=== PATIENT | male | born 1980 | race African-American/Black ===

== ENCOUNTER 2016-03-28 15:39 | Emergency (ER) | payer OTHER ==
--- NOTE | 2016-03-28 17:37 | ED NURSING NOTES ---
Clinical Report - Nurses [facility] [place] [address] 03/28/2016 15:40 Patient: HIEN BRUNO JR TRIAGE Triage time 15:48 Mar 28 2016. Acuity: LEVEL 3. Chief Complaint: ABDOMINAL PAIN, NAUSEA and DIARRHEA. Alert. No acute distress. --15:55 Madeline Ballesteros R.N. 15:48 03/28/16. BP: 99/63. HR: 80. RR: 18. O2 saturation: 98%. Temp: 98.2 F. --15:55 Madeline Ballesteros R.N. Weight: 58.9 kg estimated. Height/Length: 67 inches Estimated. BMI: 20.4. --15:47 Madeline Ballesteros R.N. Medications None. --15:48 Madeline Ballesteros R.N. Medication/allergy information source: the patient. --15:55 Madeline Ballesteros R.N. Allergies No Known Drug Allergy. --15:51 Madeline Ballesteros R.N. History Arrived by private vehicle. Historian: patient. Accompanied by friend. Primary physician ("can't remember"). ( 4 days of diarrhea - vomiting). The patient has had vomiting and diarrhea. Last oral intake by patient was lunch. Treatment MOUNTAIN OR GLACIER GUIDE: None. SURGERY HX: No history of previous surgery. SOCIAL HX: Light tobacco smoker (cigarette)- less than 1/2 a pack per day. History of drug use: marijuana. No alcohol use. No recent travel. No infectious disease exposure. No known contact with a sick individual. FALL RISK ASSESSMENT: Fall risk assessment completed. No fall risk identified. NUTRITIONAL RISK ASSESSMENT: The nutritional risk assessment revealed no deficiencies. FUNCTIONAL ASSESSMENT: Functional assessment: no impairments noted. LEARNING NEEDS ASSESSMENT: The learning needs assessment revealed no barriers. SKIN INTEGRITY ASSESSMENT: Skin integrity risk assessment completed. No skin integrity risk identified. --15:55 Madeline Ballesteros R.N. PROBLEMS: PTSD. Schizoaffective Disorder. --15:51 Madeline Ballesteros R.N. Interventions ID band on patient. To room. --15:55 Madeline Ballesteros R.N. PHYSICAL ASSESSMENT Ambulatory to room. GENERAL / NEURO / PSYCH: Oriented X 4. Appears in no acute distress. RESPIRATORY: Respirations not labored. CVS: Capillary refill less than 2 seconds. GI / : Abdomen soft. SKIN: Skin is warm and dry. --16:28 Madeline Ballesteros R.N. NURSING PROGRESS NOTES 16:16 03/28/2016 Site #1 started via IV in the right antecubital space with an 20g angiocath; one attempt. Blood drawn: rainbow set. Labeled in the presence of the patient and sent to the lab. Saline lock flushed with 10 mL saline. --16:16 John Linn R.N. 16:16 03/28/2016 Started bag #1 1000 mL IV Fluids IV NS (Saline); bolus of 1000 mL wide open then at 1000 mL/hr via site #1. Allergies verified and confirmed 5 rights. IV patency established. IV site checked: no pain, redness, or swelling. IV flushed thoroughly pre- and post-medication administration. --16:17 John Linn R.N. ( Pt will try to have a BM while here, plan for collection.). --16:28 Madeline Ballesteros R.N. 17:13 03/28/2016 IV Fluids IV NS Discontinued: bag #1 infused. Total amount infused: 1000 mL. IV patency established. IV site checked: no pain, redness, or swelling. IV flushed thoroughly. --17:13 aMdeline Ballesteros R.N. ( no stool as of this time.). --17:13 Madeline Ballesteros R.N. ( Patient provided with stool sample collection kit. Patient given instructions for use at home.). --17:45 John Linn R.N. DISPOSITION / DISCHARGE 17:52 03/28/2016 Site #1 removed upon discharge. Pressure dressing applied. --17:52 Letty Thakur R.N. Departure time: 17:53. Condition at departure: unchanged and stable. Discharge instructions provided and reviewed with the patient. Reviewed medication(s) side effects information. Prescription(s) given to the patient. Patient verbalized understanding. Written instructions provided in [place]. The patient was discharged by the physician assistant statistician. He was discharged home and accompanied by procedures tech. He left the Emergency Department ambulatory and via private vehicle. Welding Process Engineer driving. --17:53 Letty Thakur R.N. 17:52 03/28/16. BP: 97/64. HR: 65. RR: 18. O2 saturation: 98%. --17:53 Letty Thakru R.N. Locked/Released at 04/01/2016 10:42 by Kassidy Montiel R.N.
--- NOTE | 2016-03-28 17:37 | ED CLINICAL REPORT ---
Clinical Report - Physicians/Mid Levels [facility] [address] [place] [address] 03/28/2016 15:40 Patient: HIEN BRUNO JR Time Seen: 15:46 Mar 28 2016. Arrived- By private vehicle. Historian- patient. HISTORY OF PRESENT ILLNESS Chief Complaint: VOMITING and DIARRHEA. This started 4 days and is still present. No recent travel. He has had nausea, vomiting and diarrhea. No flank pain. Has recently been on antibiotics but not recently been camping. The illness is described as moderate. (Patient reports nausea vomiting and diarrhea over the last 4 days, with some abdominal pain, 2 Zofran prior to arrival. No recent travel. He was recently ill with a sinus infection, finished antibiotic course for weeks previously. No hematochezia.). Similar symptoms previously: None. Recent medical care: Not recently seen/assessed. REVIEW OF SYSTEMS No fever, difficulty with urination, dark urine, cough or chest pain. All systems otherwise negative, except as recorded above. SOCIAL HISTORY Smoker- current status unknown. History of drug use: marijuana. No alcohol use. ADDITIONAL NOTES The nursing notes have been reviewed. PHYSICAL EXAM Vital Signs: 03/28/2016 15:48 BP: 99/63. HR: 80. RR: 18. O2 saturation: 98%. Temp: 98.2 F. Appearance: Alert. Eyes: Eyes normal inspection. ENT: Ears normal. Nose normal. Neck: Normal inspection. No carotid bruit. CVS: Normal heart rate and rhythm. Heart sounds normal. Respiratory: No respiratory distress. Breath sounds normal. No accessory muscle use. Abdomen: Soft and nontender. Bowel sounds normal. No abdominal tenderness. Back: Normal inspection. No CVA tenderness. Neuro: Oriented X 3. LABS, X-RAYS, AND EKG Laboratory Tests: CBC w Diff: (ELIZA: 03/28/2016 16:05) ( MsgRcvd 03/28/2016 17:06) Final results Test Result Flag Units (Reference) WHITE BLOOD COUNT 3.8 L K/uL (4.5-11.5) RED BLOOD COUNT 5.06 M/uL (4.50-5.90) HEMOGLOBIN 13.9 gm/dL (13.5-17.5) HEMATOCRIT 43.3 % (41.0-53.0) MEAN CELL VOLUME 86 fL (80-100) MEAN CORPUSCULAR HGB 28 pg (26-34) MEAN CORPUSCULAR HGB CONC 32 g/dL (31-37) RED CELL DISTRIBUTION WIDTH 12.9 % (11.6-14.8) PLATELET COUNT 196 K/uL (150-400) NEUTROPHIL % 40.6 L % (50-75) LYMPH % 41.1 H % (25-40) MONO % 13.1 % (3-14) EOSINOPHIL % 4.9 H % (0-4) BASOPHIL % 0.3 % (0-2) CMP: (ELIZA: 03/28/2016 16:05) ( MsgRcvd 03/28/2016 17:22) Final results Test Result Flag Units (Reference) GLUCOSE 90 mg/dL (70-110) BUN 11 mg/dL (7-18) CREATININE 1.4 H mg/dL (0.6-1.3) Estimated GFR >60 mL/min Estimated GFR- >60 mL/min Note: Persistent reduction over 3 months in eGFR<60 mL/min/1.73 m2 defines CKD. Patients with eGFR values>=60 mL/min/1.73 m2 may also have CKD if evidence ofpersistent proteinuria. Additional information may be foundat www.kidney.org. SODIUM 143 mmol/L (136-145) POTASSIUM 3.6 mmol/L (3.5-5.1) CHLORIDE 104 mmol/L (98-107) CARBON DIOXIDE 32 mmol/L (21-32) CALCIUM 9.1 mg/dL (8.5-10.1) TOTAL PROTEIN 7.8 g/dL (6.4-8.2) ALBUMIN 3.9 g/dL (3.3-5.0) BILIRUBIN, TOTAL 0.6 mg/dL (0.0-1.0) ALKALINE PHOSPHATASE 51 U/L (46-116) AST (SGOT) 10 L U/L (15-37) ALT (SGPT) 20 U/L (12-78) LIPASE 72 L U/L (73-393) . PROGRESS AND PROCEDURES Course of Care: During the time in the ED, the following DDX were considered: acute surgical abdomen, hemodynamic or metabolic instability, dehydration, gastroenteritis-viral, food borne, or bacterial, food intolerance, irritable or inflammatory bowel, infection, sepsis. IV hydration, no guarding, no peritoneal signs. Stable NO stool sample in ER. 03/28/2016 15:48 BP: 99/63. HR: 80. RR: 18. O2 saturation: 98%. Temp: 98.2 F. Patient is stable. Symptoms better. Patient/family counseled. Disposition: Discharged. CLINICAL IMPRESSION Vomiting with nausea, dehydration and volume depletion. Diarrhea Acute abdominal pain of undetermined cause. INSTRUCTIONS Drink plenty of fluids. Warnings: Further evaluation is necessary. GENERAL WARNINGS: Return or contact your physician immediately if your condition worsens or changes unexpectedly, if not improving as expected, or if other problems arise. fever/ blood in vomit or in stool, abd pain that is different/ new / significantly worse. Prescription Medications: Zofran (orally disintegrating tablets) 4 mg: take 1 orally every 6 hours for 3 days as needed for nausea. Dispense ten (10). No refill. Substitution is permissible. Follow-up: Follow up with your doctor Friday. (Electronically signed by Selena Arizmendi P.A.-C 03/28/2016 17:41)
--- NOTE | 2016-03-28 17:37 | ED NURSING NOTES ---
Clinical Report - Nurses [facility] [place] [address] 03/28/2016 15:40 Patient: HIEN BRUNO JR TRIAGE Triage time 15:48 Mar 28 2016. Acuity: LEVEL 3. Chief Complaint: ABDOMINAL PAIN, NAUSEA and DIARRHEA. Alert. No acute distress. --15:55 Madeline Ballesteros R.N. 15:48 03/28/16. BP: 99/63. HR: 80. RR: 18. O2 saturation: 98%. Temp: 98.2 F. --15:55 Madeline Ballesteros R.N. Weight: 58.9 kg estimated. Height/Length: 67 inches Estimated. BMI: 20.4. --15:47 Madeline Ballesteros R.N. Medications None. --15:48 Madeline Ballesteros R.N. Medication/allergy information source: the patient. --15:55 Madeline Ballesteros R.N. Allergies No Known Drug Allergy. --15:51 Madeline Ballesteros R.N. History Arrived by private vehicle. Historian: patient. Accompanied by friend. Primary physician ("can't remember"). ( 4 days of diarrhea - vomiting). The patient has had vomiting and diarrhea. Last oral intake by patient was lunch. Treatment JOB BOSS: None. SURGERY HX: No history of previous surgery. SOCIAL HX: Light tobacco smoker (cigarette)- less than 1/2 a pack per day. History of drug use: marijuana. No alcohol use. No recent travel. No infectious disease exposure. No known contact with a sick individual. FALL RISK ASSESSMENT: Fall risk assessment completed. No fall risk identified. NUTRITIONAL RISK ASSESSMENT: The nutritional risk assessment revealed no deficiencies. FUNCTIONAL ASSESSMENT: Functional assessment: no impairments noted. LEARNING NEEDS ASSESSMENT: The learning needs assessment revealed no barriers. SKIN INTEGRITY ASSESSMENT: Skin integrity risk assessment completed. No skin integrity risk identified. --15:55 Madeline Ballesteros R.N. PROBLEMS: PTSD. Schizoaffective Disorder. --15:51 Madeline Ballesteros R.N. Interventions ID band on patient. To room. --15:55 Madeline Ballesteros R.N. PHYSICAL ASSESSMENT Ambulatory to room. GENERAL / NEURO / PSYCH: Oriented X 4. Appears in no acute distress. RESPIRATORY: Respirations not labored. CVS: Capillary refill less than 2 seconds. GI / : Abdomen soft. SKIN: Skin is warm and dry. --16:28 Madeline Ballesteros R.N. NURSING PROGRESS NOTES 16:16 03/28/2016 Site #1 started via IV in the right antecubital space with an 20g angiocath; one attempt. Blood drawn: rainbow set. Labeled in the presence of the patient and sent to the lab. Saline lock flushed with 10 mL saline. --16:16 John Linn R.N. 16:16 03/28/2016 Started bag #1 1000 mL IV Fluids IV NS (Saline); bolus of 1000 mL wide open then at 1000 mL/hr via site #1. Allergies verified and confirmed 5 rights. IV patency established. IV site checked: no pain, redness, or swelling. IV flushed thoroughly pre- and post-medication administration. --16:17 John Linn R.N. ( Pt will try to have a BM while here, plan for collection.). --16:28 Madeline Ballesteros R.N. 17:13 03/28/2016 IV Fluids IV NS Discontinued: bag #1 infused. Total amount infused: 1000 mL. IV patency established. IV site checked: no pain, redness, or swelling. IV flushed thoroughly. --17:13 Madeline Ballesteros R.N. ( no stool as of this time.). --17:13 Madeline Ballesteros R.N. ( Patient provided with stool sample collection kit. Patient given instructions for use at home.). --17:45 John Linn R.N. DISPOSITION / DISCHARGE 17:52 03/28/2016 Site #1 removed upon discharge. Pressure dressing applied. --17:52 Letty Thakur R.N. Departure time: 17:53. Condition at departure: unchanged and stable. Discharge instructions provided and reviewed with the patient. Reviewed medication(s) side effects information. Prescription(s) given to the patient. Patient verbalized understanding. Written instructions provided in Polish. The patient was discharged by the physician assistant in nursing. He was discharged home and accompanied by neighborhood coordinator. He left the Emergency Department ambulatory and via private vehicle. Art History Professor driving. --17:53 Letty Thakur R.N. 17:52 03/28/16. BP: 97/64. HR: 65. RR: 18. O2 saturation: 98%. --17:53 Letty Thakur R.N. Locked/Released at 04/01/2016 10:42 by Kassidy Montiel R.N.
--- NOTE | 2016-03-28 17:37 | ED ORDER SUMMARY ---
..... Patient: HIEN BRUNO JR OrderSheet [facility] VisitID: [id number] [address] [place] [address] 35y, M Registration Date/Time: 03/28/2016 ORDER SHEET Weight: 58.9 kg (estimated) Allergies: No Known Drug Allergy GENERAL ORDERS: CBC w Diff Urgent (15:53 03/28/2016 EKoroleva P.A.-C) (Ack 15:54 LTapper) (16:17 MCook R.N.) CMP Urgent (15:53 03/28/2016 EKoroleva P.A.-C) (Ack 15:54 LTapper) (16:17 MCashleyk R.N.) Culture, Stool Urgent (15:53 03/28/2016 EKoroleva P.A.-C) (Ack 15:54 LTapper) Stool for C. Difficile Urgent (15:53 03/28/2016 EKoroleva P.A.-C) (Ack 15:54 LTapper) Stool WBC Urgent (15:53 03/28/2016 EKoroleva P.A.-C) (Ack 15:54 LTapper) Lipase Urgent (16:57 03/28/2016 EKoroleva P.A.-C) (Ack 17:06 LTapper) (17:13 Madeline R.N.) MEDICATION ORDERS: IV FLUIDS: IV NS : initial bolus 1000 mL (1000 mL/hr), then 1000 mL/hr for X1 (NOW); Mario (15:53 03/28/2016 EKoroleva P.A.-C) (16:17 MCook R.N.) ORDER SHEET NOTES: [Electronically signed by Selena ArizmendiATawana-C (17:41 03/28/2016)] [Electronically signed by Kassidy Montiel R.N. (10:42 04/01/2016)] [Electronically locked/signed by Kassidy Montiel R.N. (10:42 04/01/2016)]
--- NOTE | 2016-03-28 17:37 | ED ORDER SUMMARY ---
..... Patient: HIEN BRUNO JR OrderSheet [facility] VisitID: [id number] [address] [place] [address] 35y, M Registration Date/Time: 03/28/2016 ORDER SHEET Weight: 58.9 kg (estimated) Allergies: No Known Drug Allergy GENERAL ORDERS: CBC w Diff Urgent (15:53 03/28/2016 EKoroleva P.A.-C) (Ack 15:54 LTapper) (16:17 MCook R.N.) CMP Urgent (15:53 03/28/2016 EKoroleva P.A.-C) (Ack 15:54 LTapper) (16:17 MCashleyk R.N.) Culture, Stool Urgent (15:53 03/28/2016 EKoroleva P.A.-C) (Ack 15:54 LTapper) Stool for C. Difficile Urgent (15:53 03/28/2016 EKoroleva P.A.-C) (Ack 15:54 LTapper) Stool WBC Urgent (15:53 03/28/2016 EKoroleva P.A.-C) (Ack 15:54 LTapper) Lipase Urgent (16:57 03/28/2016 EKoroleva P.A.-C) (Ack 17:06 LTapper) (17:13 Madeline R.N.) MEDICATION ORDERS: IV FLUIDS: IV NS : initial bolus 1000 mL (1000 mL/hr), then 1000 mL/hr for X1 (NOW); Mario (15:53 03/28/2016 EKoroleva P.A.-C) (16:17 MCook R.N.) ORDER SHEET NOTES: [Electronically signed by Selena ArizmendiATawana-C (17:41 03/28/2016)] [Electronically signed by Kassidy Montiel R.N. (10:42 04/01/2016)] [Electronically locked/signed by Kassidy Montiel R.N. (10:42 04/01/2016)]
--- NOTE | 2016-04-01 10:42 | ED DISCHARGE INSTRUCTIONS ---
Patient: HIEN BRUNO JR General Instructions [facility] VisitID: [id number] [place] [address] 35y, M Registration Date/Time: 03/28/2016 Vomiting with nausea, dehydration and volume depletion. Diarrhea Acute abdominal pain of undetermined cause. INSTRUCTIONS Drink plenty of fluids. Warnings: Further evaluation is necessary. GENERAL WARNINGS: Return or contact your physician immediately if your condition worsens or changes unexpectedly, if not improving as expected, or if other problems arise. fever/ blood in vomit or in stool, abd pain that is different/ new / significantly worse. Prescription Medications: Zofran (orally disintegrating tablets) 4 mg: take 1 orally every 6 hours for 3 days as needed for nausea. Dispense ten (10). No refill. Substitution is permissible. Follow-up: Follow up with your doctor Friday. ADDITIONAL INFORMATION Vomiting [6Yr-Adult] Vomiting is a common symptom that may be due to different causes. These include gastroenteritis ("stomach flu"), food poisoning and gastritis. There are other more serious causes of vomiting which may be hard to diagnose early in the illness. Therefore, it is important to watch for the warning signs listed below. The main danger from repeated vomiting is dehydration. This is due to excess loss of water and minerals from the body. When this occurs, body fluids must be replaced. Home Care: If symptoms are severe, rest at home for the next 24 hours. You may use acetaminophen (Tylenol) or ibuprofen (Motrin, Advil) to control fever, unless another medicine was prescribed. [NOTE : If you have chronic liver or kidney disease or ever had a stomach ulcer or GI bleeding, talk with your doctor before using these medicines.] (Aspirin should never be used in anyone under 18 years of age who is ill with a fever. It may cause severe liver damage.) Avoid tobacco and alcohol use, which may worsen your symptoms. If medicines for vomiting were prescribed, take as directed. Once vomiting stops, then follow these guidelines: During The First 12-24 Hours follow the diet below: FRUIT JUICES: Apple, grape juice, clear fruit drinks, and electrolyte replacement drinks. BEVERAGES: Soft drinks without caffeine; mineral water (plain or flavored), decaffeinated tea and coffee. SOUPS: Clear broth, consomm and bouillon DESSERTS: Plain gelatin, popsicles and fruit juice bars. As you feel better, you may add 6-8 ounces of yogurt per day. During The Next 24 Hours you may add the following to the above: Hot cereal, plain toast, bread, rolls, crackers Plain noodles, rice, mashed potatoes, chicken noodle or rice soup Unsweetened canned fruit (avoid pineapple), bananas Limit caffeine and chocolate. No spices or seasonings except salt. During The Next 24 Hours Gradually resume a normal diet, as you feel better and your symptoms lessen. Follow Up with your doctor as advised if you are not improving over the next 2-3 days. Get Prompt Medical Attention if any of the following occur: Constant right-sided lower abdominal pain or increasing general abdominal pain Continued vomiting (unable to keep liquids down) for 24 hours Frequent diarrhea (more than 5 times a day); blood (red or black color) or mucus in diarrhea Reduced urine output or extreme thirst Weakness, dizziness or fainting Unusually drowsy or confused Fever of 100.4F (38C) oral or higher, not better with fever medication Yellow color of the eyes or skin Diarrhea, Uncertain Cause (Adult, Report Pending) Diarrhea has several possible causes. Commonstomach fluis caused by a virus. Food poisoning, bacteria or parasites are other causes for diarrhea. Only diarrhea caused by bacteria or parasites requires treatment with an antibiotic. Diarrhea from a virus or food poisoning improves with simple home treatment. A stool sample is needed to make the diagnosis of an infection with bacteria or parasites. Up to three stool specimens may be required to diagnose This may take up to two days to get the result. It may be necessary to wait until the stool test is complete to make the diagnosis and select the best antibiotic to prescribe. Home Care: If symptoms are severe, rest at home for the next 24 hours or until you are feeling better. You may use acetaminophen (Tylenol) or ibuprofen (Motrin, Advil) to control fever, unless another medicine was prescribed. [NOTE: If you have chronic liver or kidney disease or ever had a stomach ulcer or GI bleeding, talk with your doctor before using these medicines.] (Aspirin should never be used in anyone under 18 years of age who is ill with a fever. It may cause severe liver damage.) Avoid tobacco, caffeine and alcohol, which may worsen your symptoms. If anti-diarrhea medicine was prescribed, take this only as directed. Sometimes anti-diarrhea medicine can make your condition worse if the cause is an infectious diarrhea. Therefore, anti-diarrhea medicine should not be taken for this condition unless advised by your doctor. During The First 12-24 Hours follow the diet below: BEVERAGES: Sport drinks like Gatorade, soft drinks without caffeine; eleno rambo, mineral water (plain or flavored), decaffeinated tea and coffee. SOUPS: Clear broth, consomm and bouillon DESSERTS: Plain gelatin (Jell-O), popsicles and fruit juice bars. During The Next 24 Hours you may add the following to the above: Hot cereal, plain toast, bread, rolls, crackers Plain noodles, rice, mashed potatoes, chicken noodle or rice soup Unsweetened canned fruit (avoid pineapple), bananas Limit fat intake to less than 15 grams per day by avoiding margarine, butter, oils, mayonnaise, sauces, gravies, fried foods, peanut butter, meat, poultry and fish. Limit fiber; avoid raw or cooked vegetables, fresh fruits (except bananas) and bran cereals. Limit caffeine and chocolate. No spices or seasonings except salt. During The Next 24 Hours Gradually resume a normal diet, as you feel better and your symptoms lessen. Follow Up with your doctor or as advised if you are not improving over the next two days. If you were asked to bring a specimen from home, bring the sample on the day of collection. You may call in 2 days (or as directed) for the results. Get Prompt Medical Attention if any of the following occur: Increasing abdominal pain or constant lower right abdominal pain Continued vomiting (unable to keep liquids down) Frequent diarrhea (more than 5 times a day) Blood in vomit or stool (black or red color) Reduced oral intake Dark urine, reduced urine output Weakness, dizziness, fainting Drowsiness, confusion, stiff neck or seizure Fever of 100.4F (38C) oral or higher, not better with fever medication New rash Abdominal Pain,Uncertain Cause [Male] Based on your visit today, the exact cause of your abdominalpain is not clear. Your exam and tests do not indicate a dangerous cause at this time. However, the signs of a serious problem may take more time to appear. Although your evaluation was reassuring today, sometimes early in the course of many conditions, exam and lab tests can appear normal. Therefore, it is important for you to watch for any new symptoms or worsening of your condition. Causes It may not be obvious what caused your symptoms. Pay attention to things that do seem to make your symptoms worse or better and discuss this with your doctor when you follow up. Diagnosis The evaluation of abdominal pain in the emergency department may onlyrequire an exam by the doctor or it may include blood, urine or imaging studies, depending on many factors. Sometimes exams and tests can identify a cause but in many cases, a clear cause is not found. Further testing at follow up visits may help to suggest a clear diagnosis. Home Care Rest as much as possible until your next exam. Try to avoid any medications (unless otherwise directed by your doctor), foods, activities, or other factors that you may have contributed to your symptoms. Try to eat foods that you know that you have tolerated well in the past. Certain diets may be recommended for some conditions that cause abdominal pain. However, since the cause of your symptoms may not be clear, discuss your diet more with your primary care provider or specialist for further recommendations. Eating several small meals per day as opposed to 2 or 3 larger meals may help. Monitor closely for anything that may make your symptoms worse or better. Pay close attention to symptoms below that may indicate worsening of your condition. Follow Up and Precautions See your doctoras instructed or sooneror if your symptoms are not improving.In some cases, you may need more testing. When to Seek Medical Attention Contact your doctor or see medical attention ifany of the following occur: Pain is becoming worse You are unable to take your medications due to excessive vomiting Swelling of the abdomen Fever of 100.4F (38C) or higher, or as directed by your health care provider Blood in vomit or bowel movements (dark red or black color) Jaundice (yellow color of eyes and skin) New onset of weakness, dizziness or fainting New onset of chest, arm, back, neck or jaw pain Lynn Diet A bland diet is used for patients with an upset stomach. It consists of foods that are mild and easy to digest. It is better to eat small frequent meals rather than three large meals a day. BEVERAGES OK: Fruit juices, non-caffeinated teas and coffee, non-carbonated wesley AVOID: Carbonated beverage, caffeinated tea and coffee, all alcoholic beverages BREAD OK: Refined white, wheat or rye bread, kike or soda crackers, Charley toast, plain rolls, bagels AVOID: Whole-grain bread CEREAL OK: Refined cereals: cooked or ready to eat AVOID: Whole grain cereals and granola, or those containing bran, seeds or nuts DESSERTS OK: Peanut butter and all others except those to "avoid" AVOID: Chocolate, cocoa, coconut, popcorn, nuts, seeds, jam, marmalade FRUITS OK: Canned, cooked, frozen or fresh fruits without seeds or tough skin AVOID: Olives, skin and seeds of fruit MEATS OK: All fresh or preserved meat, fish and fowl AVOID: Any that are prepared with those spices to "avoid" CHEESE & EGGS OK: Eggs, cottage cheese, cream cheese, other cheeses AVOID: All cheeses made with those spices to "avoid" POTATOES & PASTA OK: Potato, rice, macaroni, noodles, spaghetti AVOID: None SOUPS OK: All soups without heavy seasoning AVOID: Soups made with those spices to "avoid" VEGETABLES OK: Canned, cooked, fresh or frozen mildly flavored vegetables without seeds, skins or coarse fiber AVOID: Vegetables prepared with those spices to "avoid"; skin and seeds of vegetables and those with coarse fiber SPICES OK: Salt, lemon and [place] juice, vinegar, all extracts, brianna, cinnamon, thyme, mace, allspice, paprika AVOID: [place] powder, cloves, pepper, seed spices, garlic, gravy pickles, highly seasoned salad dressings Clear Liquid Diet Clear liquids are any liquid that you can see through as well as those that are very easy to digest. This is used while the body is recovering from irritation or infection of the stomach or intestinal tract. It may also be used before special procedures or surgery. This diet is to be used no more than three days. You may include the following items. Adults Adults should drink a total of 23 quarts of liquid per day. It may be easier to drink small frequent servings rather than a few large ones. Liquids can include: Fruit juices.Strained orange juice or lemonade (no pulp), apple, grape and cranberry juice, clear fruit drinks, sports drinks Beverages.Sport drinks, sodas, mineral water (plain or flavored), tea, black coffee, liquid gelatin (add twice the recommended amount of water) Soups.Clear broth, consomm, bouillon Desserts.Plain gelatin, popsicles, fruit juice bars Children Over 2 years old The following liquids are acceptable for children over age 2: Fruit juices.Strained orange juice or lemonade (no pulp), apple, grape and cranberry juice, clear fruit drinks Beverages. Sports drinks, sodas, mineral water (plain or flavored), tea, liquid gelatin (add twice the recommended amount of water) Soups. Clear broth, consomm, bouillon Desserts. Plain gelatin, popsicles, fruit juice bars Children under 2 years old Oral rehydration fluids such are available at drug stores and most grocery stores without a prescription. Ondansetron Hydrochloride Oral tablet What is this medicine? ONDANSETRON (on LUIS se amor) is used to treat nausea and vomiting caused by chemotherapy. It is also used to prevent or treat nausea and vomiting after surgery. How should I use this medicine? Take this medicine by mouth with a glass of water. Follow the directions on your prescription label. Take your doses at regular intervals. Do not take your medicine more often than directed. Talk to your director of collections and archives regarding the use of this medicine in children. Special care may be needed. What side effects may I notice from receiving this medicine? Side effects that you should report to your doctor or health child care center assistant director as soon as possible: allergic reactions like skin rash, itching or hives, swelling of the face, lips or tongue breathing problems dizziness fast or irregular heartbeat feeling faint or lightheaded, falls fever and chills swelling of the hands or feet tightness in the chest Side effects that usually do not require medical attention (report to your doctor or health child care center assistant director if they continue or are bothersome): constipation or diarrhea headache What may interact with this medicine? Do not take this medicine with any of the following medications: -apomorphine -cisapride -dofetilide -dronedarone -pimozide -thioridazine -ziprasidone This medicine may also interact with the following medications: -carbamazepine -phenytoin -rifampicin -tramadol -other medicines that prolong the QT interval (cause an abnormal heart rhythm) What if I miss a dose? If you miss a dose, take it as soon as you can. If it is almost time for your next dose, take only that dose. Do not take double or extra doses. Where should I keep my medicine? Keep out of the reach of children. Store between 2 and 30 degrees C (36 and 86 degrees F). Throw away any unused medicine after the expiration date. What should I tell my health care provider before I take this medicine? They need to know if you have any of these conditions: heart disease history of irregular heartbeat liver disease low levels of magnesium or potassium in the blood an unusual or allergic reaction to ondansetron, granisetron, other medicines, foods, dyes, or preservatives or trying to get breast-feeding What should I watch for while using this medicine? Check with your doctor or health child care center assistant director right away if you have any sign of an allergic reaction. You have been given the following additional information: Vomiting (6Y-Adult) Diarrhea, Unk Cause (Adult) Report Pendg Abdominal Pain, Unknown Cause, (Male) Diet, Lynn (Adult) Diet, Clear Liquid Ondansetron Hydrochloride Oral tablet (Electronically signed by Selena Arizmendi P.A.-C 03/28/2016 17:41)
--- NOTE | 2016-04-01 10:42 | ED MAR SUMMARY ---
..... Medication Administration Record [facility] [address] [place] [address] Patient: HIEN BRUNO V Visit ID: [id number] 35y, M Weight: 58.9 kg Height/Length: 67 in BMI: 20.4 ALLERGIES: No Known Drug Allergy Start 16:16 03/28/2016 John Linn RJose Francisco, Stop 17:13 03/28/2016 Madeline Ballesteros R.N. Medication Administered: IV NS (SALINE), Dose: IV Fluids, Rate: 1000 mL/hr, Bolus: 1000 mL wide open, Dispensed: 1000 mL bag, Site: #1 right AC. Medication Ordered: IV NS : initial bolus 1000 mL (1000 mL/hr), then 1000 mL/hr for X1 (NOW); Mario.
--- NOTE | 2016-04-01 10:42 | ED MED RECONCILIATION SUMMARY ---
Patient: HIEN BRUNO V Medication Reconciliation Report [facility] VisitID: [id number] [address] [place] [address] 35y, M Registration Date/Time: 03/28/2016 Weight: 58.9 kg Height/Length: 67 in. BMI: 20.4 ALLERGIES: No Known Drug Allergy The patient's Home Medications are listed below: NONE. The source(s) of the original Home Medication information: patient The following Medications were given to the patient in the Emergency Department: IV NS IV Fluids bolus 1000 mL wide open, then 1000 mL/hr, administered: 03/28/2016 4:16:00 PM The following Medications were prescribed to the patient: Zofran (orally disintegrating tablets) 4 mg: take 1 orally every 6 hours for 3 days as needed for nausea. Dispense ten (10). No refill. Substitution is permissible. -- Selena Arizmendi, PTawanaA.-C
--- NOTE | 2016-04-01 10:42 | ED MAR SUMMARY ---
..... Medication Administration Record [facility] [address] [place] [address] Patient: HIEN BRUNO V Visit ID: [id number] 35y, M Weight: 58.9 kg Height/Length: 67 in BMI: 20.4 ALLERGIES: No Known Drug Allergy Start 16:16 03/28/2016 John Linn RJose Francisco, Stop 17:13 03/28/2016 Madeline Ballesteros R.N. Medication Administered: IV NS (SALINE), Dose: IV Fluids, Rate: 1000 mL/hr, Bolus: 1000 mL wide open, Dispensed: 1000 mL bag, Site: #1 right AC. Medication Ordered: IV NS : initial bolus 1000 mL (1000 mL/hr), then 1000 mL/hr for X1 (NOW); Mario.
--- NOTE | 2016-04-01 10:42 | ED MED RECONCILIATION SUMMARY ---
Patient: HIEN BRUNO V Medication Reconciliation Report [facility] VisitID: [id number] [address] [place] [address] 35y, M Registration Date/Time: 03/28/2016 Weight: 58.9 kg Height/Length: 67 in. BMI: 20.4 ALLERGIES: No Known Drug Allergy The patient's Home Medications are listed below: NONE. The source(s) of the original Home Medication information: patient The following Medications were given to the patient in the Emergency Department: IV NS IV Fluids bolus 1000 mL wide open, then 1000 mL/hr, administered: 03/28/2016 4:16:00 PM The following Medications were prescribed to the patient: Zofran (orally disintegrating tablets) 4 mg: take 1 orally every 6 hours for 3 days as needed for nausea. Dispense ten (10). No refill. Substitution is permissible. -- Selena Arizmendi, PTawanaA.-C
== END 2016-03-28 17:55 | disposition home or self-care (01) ==
LOC: ED SRH 15:39
DX: R11.2 Nausea with vomiting, unspecified (principal); E86.0 Dehydration; R19.7 Diarrhea, unspecified; R10.9 Unspecified abdominal pain; F17.210 Nicotine dependence, cigarettes, uncomplicated
CPT/HCPCS: 90100; 92235; 95059

== ENCOUNTER 2016-03-29 19:08 | Outpatient (CLI) | payer OTHER | END 2016-03-29 23:00 | LOC: LAB SRH 19:08 | DX: R19.7 Diarrhea, unspecified (principal) | CPT/HCPCS: 90112; 90455 ==

== ENCOUNTER 2016-06-06 20:49 | Emergency (ER) | payer OTHER ==
--- NOTE | 2016-06-06 22:44 | ED NURSING NOTES ---
Clinical Report - Nurses [facility] [address] [place] [address] 06/06/2016 20:50 Patient: HIEN BRUNO JR TRIAGE Triage time 20:54 Jun 06 2016. Acuity: LEVEL 4. Chief Complaint: LEFT LOWER EXTREMITY PAIN and SWELLING. Alert. No acute distress. --21:08 Niesha Jenkins R.N. 20:54 06/06/16. BP: 118/83. HR: 93. RR: 16. O2 saturation: 97%. Temp: 97.8 F. Pain level now: 09/02. --21:08 Niesha Jenkins R.N. Weight: 72.5 kg stated. Height/Length: 71 inches Per Patient. BMI: 22.3. --21:06 Niesha Jenkins R.N. Medications None. --21:04 Niesha Jenkins R.N. Allergies None. --21:04 Niesha Jenkins R.N. History Arrived by private vehicle. Historian: patient. Injury occurred. This occurred (about 2 days ago). ( hit on coffee table). He has had trouble walking. 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 PAST MEDICAL HX: Tetanus status: up-to-date. Immunizations: up-to-date. SOCIAL HX: Current every day light tobacco smoker (cigarette)- less than 1/2 a pack per day. History of heavy drug use: marijuana. Recently used drugs. No alcohol use. Infectious disease exposure. (refused to answer anymore questions). SELF HARM ASSESSMENT: A self harm assessment was performed. (refused to answer anymore questions). FALL RISK ASSESSMENT: Fall risk assessment completed. No fall risk identified. NUTRITIONAL RISK ASSESSMENT: The nutritional risk assessment revealed no deficiencies. FUNCTIONAL ASSESSMENT: Functional assessment: no impairments noted. LEARNING NEEDS ASSESSMENT: The learning needs assessment revealed no barriers. ABUSE ASSESSMENT: Abuse assessment: (refused to answer any more questions). SKIN INTEGRITY ASSESSMENT: Skin integrity risk assessment completed. No skin integrity risk identified. --21:08 Niesha Jenkins R.N. PROBLEMS: Abdominal Pain. Vomiting. Diarrhea. PTSD. Schizoaffective Disorder. --21:04 Niesha Jenkins R.N. ADDITIONAL SURGERIES: Dental Work. --21:04 Niesha Jenkins R.N. Interventions ID band on patient. --21:08 Niesha Jenkins R.N. PHYSICAL ASSESSMENT Ambulatory to room. GENERAL / NEURO / PSYCH: Oriented X 4. Alert. Appears in no acute distress. EXTREMITIES: Limited ROM present. Lower extremity edema. Left knee: tenderness and swelling. SKIN: Skin is warm and dry. --21:09 Niesha Jenkins R.N. NURSING PROGRESS NOTES Cold pack applied. Patient identifiers checked. Call light placed in reach. Side rails up x 1. Bed placed in lowest position. Brakes of bed on. --21:09 Niesha Jenkins R.N. Patient returned from radiology by wheelchair with tech. --22:16 Niesha Jenkins R.N. 23:08. Immobilizer applied to the left knee by csr technician. Patient fit with crutches. Crutch training performed. --23:16 Janet, Karen, ER Tech1. DISPOSITION / DISCHARGE Departure time: :Jun 06 2016. Condition at departure: improved. The following issues were addressed: pain control and comfort issues. No learning barriers present. Reviewed medication(s) side effects, precautions, dosing and course information. Reviewed referral to an orthopedic surgeon. Patient verbalized understanding. Written instructions provided in Polish. Discharge instructions not provided and reviewed with the patient. No work note given. The patient was discharged home and accompanied by family. He left the Emergency Department via private vehicle. Family member driving. --23:16 Niesha Jenkins R.N. 23:15 06/06/16. BP: 124/81. HR: 90. RR: 16. O2 saturation: 100%. Pain level now: 06/03. --23:16 Niesha Jenkins R.N. Locked/Released at 06/12/2016 11:06 by Niesha Jenkins R.N.
--- NOTE | 2016-06-06 22:44 | ED CLINICAL REPORT ---
Clinical Report - Physicians/Mid Levels [facility] [address] [place] [address] 06/06/2016 20:50 Patient: HIEN BRUNO JR Time Seen: 21:15. Arrived- By private vehicle. Historian- patient. HISTORY OF PRESENT ILLNESS Chief Complaint: Injury to right knee. The injury happened 2 days. Occurred at home. The patient sustained a direct blow and crush injury. (2 days prior to arrival, patient sustained a direct impact from a coffee table onto his left knee. Since incident he has been limping. Pain worsens with movement and activity. He has had swelling distal to such. Denies any history of DVT or PE. Denies any current pain. Seen at urgent care previously for this incident, no imaging. He reports his swelling gets worse with ambulation. He has been using an Gio wrap from time to time, which improves his swelling.). REVIEW OF SYSTEMS The patient complains of pain on weight bearing. All systems otherwise negative, except as recorded above. PAST HISTORY See nurses notes. Problems: Abdominal Pain. Vomiting. Diarrhea. PTSD. Schizoaffective Disorder. Additional Surgeries: Dental Work. Medications: None. Allergies: None. SOCIAL HISTORY Current every day smoker. History of drug use: marijuana. ADDITIONAL NOTES The nursing notes have been reviewed. PHYSICAL EXAM Vital Signs: 06/06/2016 20:54 BP: 118/83. HR: 93. RR: 16. O2 saturation: 97%. Temp: 97.8 F. Pain level now: 7/10. Appearance: Alert. Head: Head atraumatic. CVS: Normal heart rate and rhythm. Heart sounds normal. Respiratory: No respiratory distress. Breath sounds normal. No decreased air movement or chest wall injury. Back: Normal inspection. No vertebral point tenderness. Skin: Skin intact. Skin warm. Normal skin color. Extremities: Left thigh. No tenderness. Left knee: mild tenderness and swelling. Left leg: mild swelling located in the mid and lower leg. Limited weight bearing secondary to pain. No erythema, tenderness, abrasion, ecchymosis or puncture wound. Gait: Limping gait. (using a cane). Neuro, Vascular and Tendons: Vascular status intact. Motor intact. LABS, X-RAYS, AND EKG Lt Knee X-ray: (neg as reviewed with DR. Gibson). PROGRESS AND PROCEDURES Course of Care: Patient with left lower extremity swelling, however no pain, there is some swelling, no history of DVT. The side DVT is less likely, as he is pain-free. Some pain with flexion of the knee. Otherwise negative knee x-ray. Patient is instructed for strict ER follow-up if he has any swelling of the left calf that is new or any pain that is not new and associated with movement. Patient is stable. Physical exam findings are improved. Symptoms better. Patient/family counseled. Disposition: Discharged. Condition: good. CLINICAL IMPRESSION Sprain of the medial collateral ligament of the left knee. INSTRUCTIONS Apply ice. Use crutches. Elevate affected areas above chest level. Do not work (3 days, then light duty as may be on crutches for 3 days, and limited lifting/ ambulation for 7 days in total). Prescription Medications: Motrin 800 mg tablets: take 1 tablet orally every 8 hours for 5 days, as needed for pain. Dispense fifteen (15). No refill. Substitution is permissible. Understanding of the discharge instructions verbalized by patient. [facility] [address] [facility] [address] (Electronically signed by Selena Arizmendi P.A.-C 06/06/2016 23:08)
--- NOTE | 2016-06-06 22:44 | ED CLINICAL REPORT ---
Clinical Report - Physicians/Mid Levels [facility] [address] [place] [address] 06/06/2016 20:50 Patient: HIEN BRUNO JR Time Seen: 21:15. Arrived- By private vehicle. Historian- patient. HISTORY OF PRESENT ILLNESS Chief Complaint: Injury to right knee. The injury happened 2 days. Occurred at home. The patient sustained a direct blow and crush injury. (2 days prior to arrival, patient sustained a direct impact from a coffee table onto his left knee. Since incident he has been limping. Pain worsens with movement and activity. He has had swelling distal to such. Denies any history of DVT or PE. Denies any current pain. Seen at urgent care previously for this incident, no imaging. He reports his swelling gets worse with ambulation. He has been using an Gio wrap from time to time, which improves his swelling.). REVIEW OF SYSTEMS The patient complains of pain on weight bearing. All systems otherwise negative, except as recorded above. PAST HISTORY See nurses notes. Problems: Abdominal Pain. Vomiting. Diarrhea. PTSD. Schizoaffective Disorder. Additional Surgeries: Dental Work. Medications: None. Allergies: None. SOCIAL HISTORY Current every day smoker. History of drug use: marijuana. ADDITIONAL NOTES The nursing notes have been reviewed. PHYSICAL EXAM Vital Signs: 06/06/2016 20:54 BP: 118/83. HR: 93. RR: 16. O2 saturation: 97%. Temp: 97.8 F. Pain level now: 7/10. Appearance: Alert. Head: Head atraumatic. CVS: Normal heart rate and rhythm. Heart sounds normal. Respiratory: No respiratory distress. Breath sounds normal. No decreased air movement or chest wall injury. Back: Normal inspection. No vertebral point tenderness. Skin: Skin intact. Skin warm. Normal skin color. Extremities: Left thigh. No tenderness. Left knee: mild tenderness and swelling. Left leg: mild swelling located in the mid and lower leg. Limited weight bearing secondary to pain. No erythema, tenderness, abrasion, ecchymosis or puncture wound. Gait: Limping gait. (using a cane). Neuro, Vascular and Tendons: Vascular status intact. Motor intact. LABS, X-RAYS, AND EKG Lt Knee X-ray: (neg as reviewed with DR. Gibson). PROGRESS AND PROCEDURES Course of Care: Patient with left lower extremity swelling, however no pain, there is some swelling, no history of DVT. The side DVT is less likely, as he is pain-free. Some pain with flexion of the knee. Otherwise negative knee x-ray. Patient is instructed for strict ER follow-up if he has any swelling of the left calf that is new or any pain that is not new and associated with movement. Patient is stable. Physical exam findings are improved. Symptoms better. Patient/family counseled. Disposition: Discharged. Condition: good. CLINICAL IMPRESSION Sprain of the medial collateral ligament of the left knee. INSTRUCTIONS Apply ice. Use crutches. Elevate affected areas above chest level. Do not work (3 days, then light duty as may be on crutches for 3 days, and limited lifting/ ambulation for 7 days in total). Prescription Medications: Motrin 800 mg tablets: take 1 tablet orally every 8 hours for 5 days, as needed for pain. Dispense fifteen (15). No refill. Substitution is permissible. Understanding of the discharge instructions verbalized by patient. [facility], , [address] [facility] [address] (Electronically signed by Selena Arizmendi P.A.-C 06/06/2016 23:08)
--- NOTE | 2016-06-06 22:44 | ED ORDER SUMMARY ---
..... Patient: HIEN BRUNO JR OrderSheet [facility] VisitID: [id number] [place] [address] 35y, M Registration Date/Time: 06/06/2016 ORDER SHEET Weight: 72.5 kg (stated) Allergies: None GENERAL ORDERS: Knee 4V Left Urgent (21:58 06/06/2016 EKoroleva P.A.-C) (Ack 21:58 AMcQuoid ER Tech1) (22:19 MCabell) Crutches (22:37 06/06/2016 EKoroleva P.A.-C) (23:16 AMcQuoid ER Tech1) Knee Immobilizer (22:37 06/06/2016 EKoroleva P.A.-C) (23:16 AMcQuoid ER Tech1) MEDICATION ORDERS: IV FLUIDS: ORDER SHEET NOTES: [Electronically signed by Selena Arizmendi P.A.-C (23:08 06/06/2016)] [Electronically signed by Niesha Jenkins R.N. (11:06 06/12/2016)] [Electronically locked/signed by Niesha Jenkins R.N. (11:06/12/2016)]
--- NOTE | 2016-06-06 22:44 | ED NURSING NOTES ---
Clinical Report - Nurses [facility] [address] [place] [address] 06/06/2016 20:50 Patient: HIEN BRUNO JR TRIAGE Triage time 20:54 Jun 06 2016. Acuity: LEVEL 4. Chief Complaint: LEFT LOWER EXTREMITY PAIN and SWELLING. Alert. No acute distress. --21:08 Niesha Jenkins R.N. 20:54 06/06/16. BP: 118/83. HR: 93. RR: 16. O2 saturation: 97%. Temp: 97.8 F. Pain level now: 09/02. --21:08 Niesha Jenkins R.N. Weight: 72.5 kg stated. Height/Length: 71 inches Per Patient. BMI: 22.3. --21:06 Niesha Jenkins R.N. Medications None. --21:04 Niesha Jenkins R.N. Allergies None. --21:04 Niesha Jenkins R.N. History Arrived by private vehicle. Historian: patient. Injury occurred. This occurred (about 2 days ago). ( hit on coffee table). He has had trouble walking. 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 PAST MEDICAL HX: Tetanus status: up-to-date. Immunizations: up-to-date. SOCIAL HX: Current every day light tobacco smoker (cigarette)- less than 1/2 a pack per day. History of heavy drug use: marijuana. Recently used drugs. No alcohol use. Infectious disease exposure. (refused to answer anymore questions). SELF HARM ASSESSMENT: A self harm assessment was performed. (refused to answer anymore questions). FALL RISK ASSESSMENT: Fall risk assessment completed. No fall risk identified. NUTRITIONAL RISK ASSESSMENT: The nutritional risk assessment revealed no deficiencies. FUNCTIONAL ASSESSMENT: Functional assessment: no impairments noted. LEARNING NEEDS ASSESSMENT: The learning needs assessment revealed no barriers. ABUSE ASSESSMENT: Abuse assessment: (refused to answer any more questions). SKIN INTEGRITY ASSESSMENT: Skin integrity risk assessment completed. No skin integrity risk identified. --21:08 Niesha Jenkins R.N. PROBLEMS: Abdominal Pain. Vomiting. Diarrhea. PTSD. Schizoaffective Disorder. --21:04 Niesha Jenkins R.N. ADDITIONAL SURGERIES: Dental Work. --21:04 Niesha Jenkins R.N. Interventions ID band on patient. --21:08 Niesha Jenkins R.N. PHYSICAL ASSESSMENT Ambulatory to room. GENERAL / NEURO / PSYCH: Oriented X 4. Alert. Appears in no acute distress. EXTREMITIES: Limited ROM present. Lower extremity edema. Left knee: tenderness and swelling. SKIN: Skin is warm and dry. --21:09 Niesha Jenkins R.N. NURSING PROGRESS NOTES Cold pack applied. Patient identifiers checked. Call light placed in reach. Side rails up x 1. Bed placed in lowest position. Brakes of bed on. --21:09 Niesha Jenkins R.N. Patient returned from radiology by wheelchair with tech. --22:16 Niesha Jenkins R.N. 23:08. Immobilizer applied to the left knee by wind energy technician. Patient fit with crutches. Crutch training performed. --23:16 Janet, Karen, ER Tech1. DISPOSITION / DISCHARGE Departure time: :Jun 06 2016. Condition at departure: improved. The following issues were addressed: pain control and comfort issues. No learning barriers present. Reviewed medication(s) side effects, precautions, dosing and course information. Reviewed referral to an orthopedic surgeon. Patient verbalized understanding. Written instructions provided in Spanish. Discharge instructions not provided and reviewed with the patient. No work note given. The patient was discharged home and accompanied by family. He left the Emergency Department via private vehicle. Family member driving. --23:16 Niesha Jenkins R.N. 23:15 06/06/16. BP: 124/81. HR: 90. RR: 16. O2 saturation: 100%. Pain level now: 06/03. --23:16 Niesha Jenkins R.N. Locked/Released at 06/12/2016 11:06 by Niesha Jenkins R.N.
--- NOTE | 2016-06-06 22:44 | ED ORDER SUMMARY ---
..... Patient: HIEN BRUNO JR OrderSheet [facility] VisitID: [id number] [place] [address] 35y, M Registration Date/Time: 06/06/2016 ORDER SHEET Weight: 72.5 kg (stated) Allergies: None GENERAL ORDERS: Knee 4V Left Urgent (21:58 06/06/2016 EKoroleva P.A.-C) (Ack 21:58 AMcQuoid ER Tech1) (22:19 MCabell) Crutches (22:37 06/06/2016 EKoroleva P.A.-C) (23:16 AMcQuoid ER Tech1) Knee Immobilizer (22:37 06/06/2016 EKoroleva P.A.-C) (23:16 AMcQuoid ER Tech1) MEDICATION ORDERS: IV FLUIDS: ORDER SHEET NOTES: [Electronically signed by Selena Arizmendi P.A.-C (23:08 06/06/2016)] [Electronically signed by Niesha Jenkins R.N. (11:06 06/12/2016)] [Electronically locked/signed by Niesha Jenkins R.N. (11:06/12/2016)]
--- NOTE | 2016-06-07 00:23 | DIAGNOSTIC IMAGING REPORT ---
PROCEDURE: XR KNEE 4 VIEWS - LEFT INDICATION: TRAUMA/INJURY TECHNIQUE: Four views. COMPARISON: None. FINDINGS: Osseous structures and joint spaces are normal. IMPRESSION: 1. Normal left knee.
--- NOTE | 2016-06-12 11:07 | ED MED RECONCILIATION SUMMARY ---
Patient: HIEN BRUNO JR Medication Reconciliation Report [facility] VisitID: [id number] [address] [place] [address] 35y, M Registration Date/Time: 06/06/2016 Weight: 72.5 kg Height/Length: 71 in. BMI: 22.3 ALLERGIES: None The patient's Home Medications are listed below: NONE. The source(s) of the original Home Medication information: Not obtained. The following Medications were given to the patient in the Emergency Department: None. The following Medications were prescribed to the patient: Motrin 800 mg tablets: take 1 tablet orally every 8 hours for 5 days, as needed for pain. Dispense fifteen (15). No refill. Substitution is permissible. -- Selena Arizmendi PWallaceC
--- NOTE | 2016-06-12 11:07 | ED DISCHARGE INSTRUCTIONS ---
Patient: HIEN BRUNO JR General Instructions [facility] VisitID: [id number] [address] [place] [address] 35y, M Registration Date/Time: 06/06/2016 Sprain of the medial collateral ligament of the left knee. INSTRUCTIONS Apply ice. Use crutches. Elevate affected areas above chest level. Do not work (3 days, then light duty as may be on crutches for 3 days, and limited lifting/ ambulation for 7 days in total). Prescription Medications: Motrin 800 mg tablets: take 1 tablet orally every 8 hours for 5 days, as needed for pain. Dispense fifteen (15). No refill. Substitution is permissible. Understanding of the discharge instructions verbalized by patient. Follow-up with: [facility], , [address], , [place], [address] ADDITIONAL INFORMATION Sprain, Knee A sprain is an injury to the ligaments or capsule that holds a joint together. There are no broken bones. Most sprains take three to six weeks to heal. If the ligament is completely torn (severe sprain), it can take months to recover from. Most knee sprains are treated with a splint, knee immobilizer or elastic wrap for support. Severe sprains may require surgery. Home care The following guidelines will help you care for your injury at home: Stay off the injured leg as much as possible until you can walk on it without pain. If you have a lot of pain with walking, crutches or a walker may be prescribed. (These can be rented or purchased at many pharmacies and surgical or orthopedic supply stores). Follow your doctor's advice regarding when to begin bearing weight on that leg. Keep your leg elevated to reduce pain and swelling. When sleeping, place a pillow under the injured leg. When sitting, support the injured leg so it is level with your waist. This is very important during the first 48 hours. Apply an ice pack (ice cubes in a plastic bag, wrapped in a towel) over the injured area for 20 minutes every 12 hours the first day. You can place the ice pack directly over the splint. If a Velcro knee immobilizer was applied, you can open this to apply the ice pack directly to the knee. Continue with ice packs 34 times a day for the next two days, then as needed for the relief of pain and swelling. You may use acetaminophen or ibuprofen to control pain, unless another pain medicine was prescribed. If you have chronic liver or kidney disease or ever had a stomach ulcer or GI bleeding, talk with your doctor before using these medicines. If you were given a splint, keep it completely dry at all times. Bathe with your splint out of the water, protected with a large plastic bag, rubber-banded at the top end. If a fiberglass splint gets wet, you can dry it with a hair-dryer. If you have a Velcro knee immobilizer, you can remove this to bathe, unless told otherwise. Follow-up care Follow up with your doctor as advised. Any X-rays you had today dont show any broken bones, breaks, or fractures. Sometimes fractures dont show up on the first X-ray. Bruises and sprains can sometimes hurt as much as a fracture. These injuries can take time to heal completely. If your symptoms dont improve or they get worse, talk with your doctor. You may need a repeat X-ray. When to seek medical care Get prompt medical attention if any of the following occur: The plaster cast or splint becomes wet or soft The fiberglass cast or splint remains wet for more than 24 hours Pain or swelling increases Toes become cold, blue, numb or tingly Ibuprofen Oral tablet What is this medicine? IBUPROFEN (eye BYOO proe fen) is a non-steroidal anti-inflammatory drug (NSAID). It is used for dental pain, fever, headaches or migraines, osteoarthritis, rheumatoid arthritis, or painful monthly periods. It can also relieve minor aches and pains caused by a cold, flu, or sore throat. How should I use this medicine? Take this medicine by mouth with a glass of water. Follow the directions on the prescription label. Take this medicine with food if your stomach gets upset. Try to not lie down for at least 10 minutes after you take the medicine. Take your medicine at regular intervals. Do not take your medicine more often than directed. A special MedGuide will be given to you by the pharmacist with each prescription and refill. Be sure to read this information carefully each time. Talk to your java mobile developer regarding the use of this medicine in children. Special care may be needed. What side effects may I notice from receiving this medicine? Side effects that you should report to your doctor or health rn complex care as soon as possible: allergic reactions like skin rash, itching or hives, swelling of the face, lips, or tongue black or bloody stools, blood in the urine or in vomit breathing problems changes in vision chest pain general ill feeling or flu-like symptoms nausea or vomiting redness, blistering, peeling or loosening of the skin, including inside the mouth slurred speech or weakness on one side of the body stomach pain unexplained weight gain or swelling unusually weak or tired yellowing of eyes or skin Side effects that usually do not require medical attention (report to your doctor or health rn complex care if they continue or are bothersome): constipation or diarrhea dizziness gas or heartburn stomach upset What may interact with this medicine? Do not take this medicine with any of the following medications: cidofovir ketorolac methotrexate pemetrexed This medicine may also interact with the following medications: alcohol aspirin diuretics lithium other drugs for inflammation like prednisone warfarin What if I miss a dose? If you miss a dose, take it as soon as you can. If it is almost time for your next dose, take only that dose. Do not take double or extra doses. Where should I keep my medicine? Keep out of the reach of children. Store at room temperature between 15 and 30 degrees C (59 and 86 degrees F). Keep container tightly closed. Throw away any unused medicine after the expiration date. What should I tell my health care provider before I take this medicine? They need to know if you have any of these conditions: asthma cigarette smoker drink more than 3 alcohol containing drinks a day heart disease or circulation problems such as heart failure or leg edema (fluid retention) high blood pressure kidney disease liver disease stomach bleeding or ulcers an unusual or allergic reaction to ibuprofen, aspirin, other NSAIDS, other medicines, foods, dyes, or preservatives or trying to get breast-feeding What should I watch for while using this medicine? Tell your doctor or healthcare professional if your symptoms do not start to get better or if they get worse. This medicine does not prevent heart attack or stroke. In fact, this medicine may increase the chance of a heart attack or stroke. The chance may increase with longer use of this medicine and in people who have heart disease. If you take aspirin to prevent heart attack or stroke, talk with your doctor or health rn complex care. Do not take other medicines that contain aspirin, ibuprofen, or naproxen with this medicine. Side effects such as stomach upset, nausea, or ulcers may be more likely to occur. Many medicines available without a prescription should not be taken with this medicine. This medicine can cause ulcers and bleeding in the stomach and intestines at any time during treatment. Ulcers and bleeding can happen without warning symptoms and can cause . To reduce your risk, do not smoke cigarettes or drink alcohol while you are taking this medicine. You may get drowsy or dizzy. Do not drive, use machinery, or do anything that needs mental alertness until you know how this medicine affects you. Do not stand or sit up quickly, especially if you are an older patient. This reduces the risk of dizzy or fainting spells. This medicine can cause you to bleed more easily. Try to avoid damage to your teeth and gums when you brush or floss your teeth. You have been given the following additional information: Knee Sprain Ibuprofen Oral tablet Do not work (3 days, then light duty as may be on crutches for 3 days, and limited lifting/ ambulation for 7 days in total). (Electronically signed by Selena Arizmendi P.A.-C 06/06/2016 23:08)
--- NOTE | 2016-06-12 11:07 | ED MAR SUMMARY ---
..... Medication Administration Record [facility] [address] [place] [place] [id number] Patient: HIEN BRUNO V Visit ID: [id number] 35y, M Weight: 72.5 kg Height/Length: 71 in BMI: 22.3 ALLERGIES: None
--- NOTE | 2016-06-12 11:07 | ED MAR SUMMARY ---
..... Medication Administration Record [facility] [address] [place], [place] [id number] Patient: HIEN BRUNO V Visit ID: [id number] 35y, M Weight: 72.5 kg Height/Length: 71 in BMI: 22.3 ALLERGIES: None
--- NOTE | 2016-06-12 11:07 | ED DISCHARGE INSTRUCTIONS ---
Patient: HIEN BRUNO JR General Instructions [facility] VisitID: [id number] [address] [place] [address] 35y, M Registration Date/Time: 06/06/2016 Sprain of the medial collateral ligament of the left knee. INSTRUCTIONS Apply ice. Use crutches. Elevate affected areas above chest level. Do not work (3 days, then light duty as may be on crutches for 3 days, and limited lifting/ ambulation for 7 days in total). Prescription Medications: Motrin 800 mg tablets: take 1 tablet orally every 8 hours for 5 days, as needed for pain. Dispense fifteen (15). No refill. Substitution is permissible. Understanding of the discharge instructions verbalized by patient. Follow-up with: [facility], , [address], , [place], [id number] ADDITIONAL INFORMATION Sprain, Knee A sprain is an injury to the ligaments or capsule that holds a joint together. There are no broken bones. Most sprains take three to six weeks to heal. If the ligament is completely torn (severe sprain), it can take months to recover from. Most knee sprains are treated with a splint, knee immobilizer or elastic wrap for support. Severe sprains may require surgery. Home care The following guidelines will help you care for your injury at home: Stay off the injured leg as much as possible until you can walk on it without pain. If you have a lot of pain with walking, crutches or a walker may be prescribed. (These can be rented or purchased at many pharmacies and surgical or orthopedic supply stores). Follow your doctor's advice regarding when to begin bearing weight on that leg. Keep your leg elevated to reduce pain and swelling. When sleeping, place a pillow under the injured leg. When sitting, support the injured leg so it is level with your waist. This is very important during the first 48 hours. Apply an ice pack (ice cubes in a plastic bag, wrapped in a towel) over the injured area for 20 minutes every 12 hours the first day. You can place the ice pack directly over the splint. If a Velcro knee immobilizer was applied, you can open this to apply the ice pack directly to the knee. Continue with ice packs 34 times a day for the next two days, then as needed for the relief of pain and swelling. You may use acetaminophen or ibuprofen to control pain, unless another pain medicine was prescribed. If you have chronic liver or kidney disease or ever had a stomach ulcer or GI bleeding, talk with your doctor before using these medicines. If you were given a splint, keep it completely dry at all times. Bathe with your splint out of the water, protected with a large plastic bag, rubber-banded at the top end. If a fiberglass splint gets wet, you can dry it with a hair-dryer. If you have a Velcro knee immobilizer, you can remove this to bathe, unless told otherwise. Follow-up care Follow up with your doctor as advised. Any X-rays you had today dont show any broken bones, breaks, or fractures. Sometimes fractures dont show up on the first X-ray. Bruises and sprains can sometimes hurt as much as a fracture. These injuries can take time to heal completely. If your symptoms dont improve or they get worse, talk with your doctor. You may need a repeat X-ray. When to seek medical care Get prompt medical attention if any of the following occur: The plaster cast or splint becomes wet or soft The fiberglass cast or splint remains wet for more than 24 hours Pain or swelling increases Toes become cold, blue, numb or tingly Ibuprofen Oral tablet What is this medicine? IBUPROFEN (eye BYOO proe fen) is a non-steroidal anti-inflammatory drug (NSAID). It is used for dental pain, fever, headaches or migraines, osteoarthritis, rheumatoid arthritis, or painful monthly periods. It can also relieve minor aches and pains caused by a cold, flu, or sore throat. How should I use this medicine? Take this medicine by mouth with a glass of water. Follow the directions on the prescription label. Take this medicine with food if your stomach gets upset. Try to not lie down for at least 10 minutes after you take the medicine. Take your medicine at regular intervals. Do not take your medicine more often than directed. A special MedGuide will be given to you by the pharmacist with each prescription and refill. Be sure to read this information carefully each time. Talk to your tactical air defense controller regarding the use of this medicine in children. Special care may be needed. What side effects may I notice from receiving this medicine? Side effects that you should report to your doctor or health home care scheduler as soon as possible: allergic reactions like skin rash, itching or hives, swelling of the face, lips, or tongue black or bloody stools, blood in the urine or in vomit breathing problems changes in vision chest pain general ill feeling or flu-like symptoms nausea or vomiting redness, blistering, peeling or loosening of the skin, including inside the mouth slurred speech or weakness on one side of the body stomach pain unexplained weight gain or swelling unusually weak or tired yellowing of eyes or skin Side effects that usually do not require medical attention (report to your doctor or health home care scheduler if they continue or are bothersome): constipation or diarrhea dizziness gas or heartburn stomach upset What may interact with this medicine? Do not take this medicine with any of the following medications: cidofovir ketorolac methotrexate pemetrexed This medicine may also interact with the following medications: alcohol aspirin diuretics lithium other drugs for inflammation like prednisone warfarin What if I miss a dose? If you miss a dose, take it as soon as you can. If it is almost time for your next dose, take only that dose. Do not take double or extra doses. Where should I keep my medicine? Keep out of the reach of children. Store at room temperature between 15 and 30 degrees C (59 and 86 degrees F). Keep container tightly closed. Throw away any unused medicine after the expiration date. What should I tell my health care provider before I take this medicine? They need to know if you have any of these conditions: asthma cigarette smoker drink more than 3 alcohol containing drinks a day heart disease or circulation problems such as heart failure or leg edema (fluid retention) high blood pressure kidney disease liver disease stomach bleeding or ulcers an unusual or allergic reaction to ibuprofen, aspirin, other NSAIDS, other medicines, foods, dyes, or preservatives or trying to get breast-feeding What should I watch for while using this medicine? Tell your doctor or healthcare professional if your symptoms do not start to get better or if they get worse. This medicine does not prevent heart attack or stroke. In fact, this medicine may increase the chance of a heart attack or stroke. The chance may increase with longer use of this medicine and in people who have heart disease. If you take aspirin to prevent heart attack or stroke, talk with your doctor or health home care scheduler. Do not take other medicines that contain aspirin, ibuprofen, or naproxen with this medicine. Side effects such as stomach upset, nausea, or ulcers may be more likely to occur. Many medicines available without a prescription should not be taken with this medicine. This medicine can cause ulcers and bleeding in the stomach and intestines at any time during treatment. Ulcers and bleeding can happen without warning symptoms and can cause . To reduce your risk, do not smoke cigarettes or drink alcohol while you are taking this medicine. You may get drowsy or dizzy. Do not drive, use machinery, or do anything that needs mental alertness until you know how this medicine affects you. Do not stand or sit up quickly, especially if you are an older patient. This reduces the risk of dizzy or fainting spells. This medicine can cause you to bleed more easily. Try to avoid damage to your teeth and gums when you brush or floss your teeth. You have been given the following additional information: Knee Sprain Ibuprofen Oral tablet Do not work (3 days, then light duty as may be on crutches for 3 days, and limited lifting/ ambulation for 7 days in total). (Electronically signed by Selena Arizmendi P.A.-C 06/06/2016 23:08)
--- NOTE | 2016-06-12 11:07 | ED MED RECONCILIATION SUMMARY ---
Patient: HIEN BRUNO JR Medication Reconciliation Report [facility] VisitID: [id number] [address] [place] [address] 35y, M Registration Date/Time: 06/06/2016 Weight: 72.5 kg Height/Length: 71 in. BMI: 22.3 ALLERGIES: None The patient's Home Medications are listed below: NONE. The source(s) of the original Home Medication information: Not obtained. The following Medications were given to the patient in the Emergency Department: None. The following Medications were prescribed to the patient: Motrin 800 mg tablets: take 1 tablet orally every 8 hours for 5 days, as needed for pain. Dispense fifteen (15). No refill. Substitution is permissible. -- Selena Arizmendi PWallaceC
== END 2016-06-06 23:15 | disposition home or self-care (01) ==
LOC: ED SRH 20:49
DX: S83.412A Sprain of medial collateral ligament of left knee, initial encounter (principal); W22.03XA Walked into furniture, initial encounter; Y93.01 Activity, walking, marching and hiking; Y92.019 Unspecified place in single-family (private) house as the place of occurrence of the external cause; Y99.9 Unspecified external cause status; F17.219 Nicotine dependence, cigarettes, with unspecified nicotine-induced disorders